=== PATIENT | male | born 2000 | race Caucasian/White ===

== ENCOUNTER 2024-08-20 13:24 | Emergency (ER) | payer BC, OTHER ==
[2024-08-20] MEDS ORDERED: Ketorolac Tromethamine 30 MG (1 mL) VIAL ONE (14:03)
[2024-08-20] MEDS ORDERED: Cyclobenzaprine 10 MG TAB ONE (14:28)
== END 2024-08-20 14:34 | disposition home or self-care (01) ==
LOC: CSHERS 13:24
DX: M54.2 Cervicalgia (principal); M25.552 Pain in left hip; M25.512 Pain in left shoulder; V89.2XXA Person injured in unspecified motor-vehicle accident, traffic, initial encounter
CPT/HCPCS: 96372; 99283; J1885